=== PATIENT | male | born 2000 | race Caucasian/White ===

== ENCOUNTER 2021-07-02 22:21 | Emergency (ER) | payer SELFPAY ==
[~2021-07-02] VITALS: Ht 160 cm; Wt 55.2 kg
[2021-07-03 02:25] VITALS: BP 121/67
--- OUTSIDE RECORDS SUMMARY | 2021-07-03 02:56 | CCD ---
Author Author [facility] Address Unknown Phone Unavailable Support Name Relationship Address Phone JAMEY PERDOMO DFAC Next Of Kin [address] [address] [place] [address] RENATO SANCHES Next Of Kin [address] [facility] [address] [place] [id number] [place] ASSOCIATE SPA DIRECTOR-C, Kylah Williamsona Next Of Kin [address] [place], [place] [phone] RODNEY KAY Next Of Kin [address] [place] [address] Valeriano PNP-C, Alexus Amanda Next Of Kin [address] [place], [place] [phone] Wratten ASSOCIATE SPA DIRECTOR-C, Foreign Next Of Kin [address] [place], [place] [phone] Valeriano PNP-C, Ashley Next Of Kin [address] [place] [address] Wratten ASSOCIATE SPA DIRECTOR-C ASSOCIATE SPA DIRECTOR-C, Foreign Next Of Kin [address] [place] [address] UN Next Of Kin Unknown Unavailable Rylie Carias Next Of Kin [address] [place] [address] Rodney Carias ECON Unknown Unavailable Re-disclosure Warning The records that you are about to access may contain information from federally-assisted alcohol or drug abuse programs. If such information is present, then the following federally mandated warning applies: This information has been disclosed to you from records protected by federal confidentiality rules (42 CFR part 2). The federal rules prohibit you from making any further disclosure of this information unless further disclosure is expressly permitted by the written consent of the person to whom it pertains or as otherwise permitted by 42 CFR part 2. A general authorization for the release of medical or other information is NOT sufficient for this purpose. The Federal rules restrict any use of the information to criminally investigate or prosecute any alcohol or drug abuse patient.The records that you are about to access may contain highly sensitive health information, the redisclosure of which is protected by Article 27-F of the [facility] Public Health law. If you continue you may have access to information: Regarding HIV / AIDS; Provided by facilities licensed or operated by the [facility] Office of Mental Health; or Provided by the [facility] Office for People With Developmental Disabilities. If such information is present, then the following [facility] mandated warning applies: This information has been disclosed to you from confidential records which are protected by state law. State law prohibits you from making any further disclosure of this information without the specific written consent of the person to whom it pertains, or as otherwise permitted by law. Any unauthorized further disclosure in violation of state law may result in a fine or assisted sentence or both. A general authorization for the release of medical or other information is NOT sufficient authorization for further disc losure. Immunizations Vaccine Date Status Description Data Source(s) COVID-19 VACCINE Pfizer 06/26/2021 12:00:00 AM EDT completed VASIIS Vaccine Series Complete: NOThis Data was Submitted to [facility] [employer]. Medications No Information Insurance Providers Payer name Policy type / Coverage type Policy ID Covered democrat ID Covered democrat's relationship to ramirez Policy Ramirez Plan Information MEDICAID [facility] [id number] SP DF [id number] [facility] [id number] SP [id number] Medicaid S [id number] S [id number] Managed Care Juan M P [id number] S [id number] D Managed Care [place] P [id number] S [id number] Managed Care [place] P [id number] S [id number] Medicaid S [id number] S [id number] Medicaid O [id number] S [id number] [employer] Other 0 [id number] Self 0 UnitedHealth[employer] Other 0 [id number] Self 0 UnitedHealth[employer] Other 0 [id number] Self 0 UnitedHealth[employer] Other 0 [id number] Self 0 [facility] PLAN [id number] SP [id number] UnitedHealthcare Other 0 [id number] Self 0 Managed Care Juan M S [id number] S [id number] Self Pay P na S na SELF PAY SP Self Pay P UNAVAILABLE S UNAVAILA BLE [facility] [id number] SP [id number] Medicaid P [id number] S [id number] Problems, Conditions, and Diagnoses No Information Surgeries/Procedures No Information Results No Information Social History No Information
== END 2021-07-03 02:57 | disposition home or self-care (01) ==
LOC: M ED 22:21
DX: J06.9 Acute upper respiratory infection, unspecified (principal); F17.200 Nicotine dependence, unspecified, uncomplicated

== ENCOUNTER 2024-08-04 22:54 | Emergency (ER) | payer OTHER, SELFPAY ==
[~2024-08-04] VITALS: Ht 160 cm; Wt 63.5 kg
[2024-08-04] MEDS ORDERED: LIDOCAINE 2% MDV 20ML VIAL SC ONE (23:25)
[2024-08-04] MEDS: BOOSTRIX VACCINE (TETANUS/DIPHTH/ACEL. PERTUSSIS) 0.5ML SYR IM.IMMUN ONE (23:30)
[2024-08-05] MEDS ORDERED: IBUP-1022 PO (00:33)
[2024-08-05] MEDS ORDERED: CEPH500C PO (00:33)
[2024-08-05] MEDS ORDERED: CEPHALEXIN 500 MG CAP PO ONE (00:45)
[2024-08-05 00:53] VITALS: BP 133/74; TEMP 98; O2SAT 98
== END 2024-08-05 00:52 | disposition home or self-care (01) ==
LOC: M ED 22:54
DX: S60.453A Superficial foreign body of left middle finger, initial encounter (principal); X58.XXXA Exposure to other specified factors, initial encounter; Y92.009 Unspecified place in unspecified non-institutional (private) residence as the place of occurrence of the external cause; Y93.9 Activity, unspecified; Y99.9 Unspecified external cause status